=== PATIENT | female | born 1935 | race Caucasian/White ===

== ENCOUNTER 2018-01-26 12:08 | Outpatient (RCR) | payer MEDICARE, BC | END 2018-04-14 14:31 | disposition home or self-care (01) | LOC: CARDREHAB 12:08 | DX: Z48.812 Encounter for surgical aftercare following surgery on the circulatory system (principal); Z95.5 Presence of coronary angioplasty implant and graft; I21.4 Non-ST elevation (NSTEMI) myocardial infarction ==